=== PATIENT | male | born 1965 | race Two or more races ===

== ENCOUNTER 2017-09-14 00:28 | Inpatient (IN) | payer MEDICARE, OTHER ==
--- NOTE | 2017-09-14 00:34 | HP ---
CIWA Score - CIWA Score Nausea/Vomitin Muscle Tremors: 1-None Visible, but [place] Anxiety: 3 Agitation: 4-Moderately Restless Paroxysmal Sweats: 3 Orientation: 3-Disoriented Date>2 days Tacttile Disturbances: 2-Mild Itch/Numbness/Burn Auditory Disturbances: 0-None Visual Disturbances: 0-None Headache: 1-Very Mild CIWA-Ar Total Score: 20 Admission ROS BHS - HPI Chief Complaint: C/O WITHDRAWAL SX'S. SEEKING DETOX Allergies/Adverse Reactions: Allergies Allergy/AdvReac Type Severity Reaction Status Date / Time No Known Allergies Allergy Verified 02/05/14 11:54 History of Present Illness: 51 Y.O. MALE WITH HX/O ALCOHOLISM HERE FOR DETOX. CLIENT IS KNOWN TO THIS PROGRAM. LAST HERE 2013. SELF REFERRED. DENIES ANY SIGNIFICANT PERIOD OF CLEAN TIME. REPORTS HX/O ETOH RELATED SEIZURE AND BLACKOUTS. DENIES SI/HI AND A/V HALLUCINATIONS. PMHX- ETOH RELATED SEIZURES PSYCH- DEPRESSION Exam Limitations: Intoxication - Ebola screening Have you traveled outside of the country in the last 21 days: No Have you had contact with anyone from an Ebola affected area: No Have you been sick,other than usual withdrawal symptoms: No Do you have a fever: No - Review of Systems Constitutional: Chills, Loss of Appetite, Night Sweats, Changes in sleep EENT: reports: No Symptoms Reported Respiratory: reports: No Symptoms reported Cardiac: reports: No Symptoms Reported GI: reports: Nausea, Poor Appetite : reports: No Symptoms Reported Musculoskeletal: reports: No Symptoms Reported Integumentary: reports: No Symptoms Reported Neuro: reports: Seizure (ETOH RELATED) Endocrine: reports: No Symptoms Reported Hematology: reports: No Symptoms Reported Psychiatric: reports: Depressed Other Systems: Reviewed and Negative Patient History - Patient Medical History Hx Anemia: No Hx Asthma: No Hx Chronic Obstructive Pulmonary Disease (COPD): No Hx Cancer: No Hx Cardiac Disorders: No Hx Congestive Heart Failure: No Hx Hypertension: Yes (HX/O BUT NON COMPLAINT WITH MEDS) Hx Hypercholesterolemia: No Hx Pacemaker: No HX Cerebrovascular Accident: No Hx Seizures: No Hx Dementia: No Hx Diabetes: No Hx Gastrointestinal Disorders: No Hx Liver Disease: No Hx Genitourinary Disorders: No Hx Sexually Transmitted Disorders: No Hx Renal Disease (ESRD): No Hx Thyroid Disease: No Hx Human Immunodeficiency Virus (HIV): No Hx Hepatitis C: No Hx Depression: Yes Hx Suicide Attempt: No Hx Schizophrenia: No Other Medical History: DENIES - Patient Surgical History Past Surgical History: Yes Hx Neurologic Surgery: No Hx Cataract Extraction: No Hx Cardiac Surgery: No Hx Lung Surgery: No Hx Abdominal Surgery: No Hx Appendectomy: No Hx Cholecystectomy: No Hx Genitourinary Surgery: No Hx Orthopedic Surgery: Yes (right leg fx after a fall 10 years ago at [facility]) Anesthesia Reaction: No - PPD History Previous Implant?: Yes Documented Results: Negative w/proof Implanted On Prior [facility] Admission?: Yes Date: 08/20/12 Results: negative PPD to be Administered?: Yes - Smoking Cessation Smoking history: Former smoker Have you smoked in the past 12 months: No Aproximately how many cigarettes per day: 0 Hx Chewing Tobacco Use: No Initiated information on smoking cessation: Yes 'Breaking Loose' booklet given: 09/14/17 - Substance & Tx. History Hx Alcohol Use: Yes Hx Substance Use: Yes Substance Use Type: Alcohol Hx Substance Use Treatment: Yes ([facility]) - Substances Abused LIQUOR Route: Oral Frequency: Daily Amount used: 3 PINTS Age of first use: 14 Date of Last Use: 09/13/17 Family Disease History - Family Disease History Family History: Denies Admission Physical Exam [facility] - Physical General Appearance: Yes: Appropriately Dressed, Mild Distress, Alcohol on Breath , Intoxicated, Tremorous (FELT), Sweating HEENTM: Yes: EOMI, Normocephalic, Normal Voice, TAMANNA, Pharynx Normal Respiratory: Yes: Chest Non-Tender, Lungs Clear, Normal Breath Sounds, No Respiratory Distress, No Accessory Muscle Use Neck: Yes: Within Normal Limits Breast: Yes: Breast Exam Deferred Cardiology: Yes: Regular Rhythm, Regular Rate, S1, S2 Abdominal: Yes: Normal Bowel Sounds, Non Tender, Soft Genitourinary: Yes: Within Normal Limits Back: Yes: Normal Inspection Musculoskeletal: Yes: full range of Motion, Other (UNSTEADY GAIT) Extremities: Yes: Normal Capillary Refill, Normal Range of Motion, Non-Tender, Tremors Neurological: Yes: Alert, Confused, Disoriented (DATE) Integumentary: Yes: Dry, Warm Lymphatic: Yes: Within Normal Limits - Diagnostic (1) Alcohol dependence with uncomplicated withdrawal Current Visit: Yes Status: Acute (2) Alcohol related seizure Current Visit: Yes Status: Suspected (3) Essential hypertension Current Visit: Yes Status: Chronic (4) Alcohol abuse with alcohol-induced mood disorder Current Visit: Yes Status: Suspected Cleared for Admission [facility] - Detox or Rehab [facility] Level of Care: Medically Managed Detox Regimen/Protocol: Librium Claeared for Rehab Admission: No BHS Breath Alcohol Content Breath Alcohol Content: 0.204 Vital Signs - Vital Signs Vital Signs Refused: No Temperature: 97.5 F Temperature Source: Oral Pulse Rate: 87 Respiratory Rate: 18 Blood Pressure: 122/81 BP Location: Left Arm Blood Pressure Position: Sitting - Height Height: 5 ft 6 in - Weight Weight: 72.575 kg Weight Measurement Method: Standing Scale Body Mass Index (BMI): 25.8 - Bowel Function Bowel Movement: No Urine Drug Screen - Test Device Lot Number: [id number] Expiration Date: 06/13/19 - Control Is Test Valid: Yes - Results Drug Screen Negative: Yes
[2017-09-14 00:39] VITALS: BMI 25.8
[2017-09-14] MEDS ORDERED: P-EPHED 60MG/TRIPROLIDI 2.5MG TABLET PO PRN (00:41)
[2017-09-14] MEDS ORDERED: MAG HYDROX/AL HYDROX/SIMETH 30 ML UNIT-DOSE CUP PO PRN (00:41)
[2017-09-14] MEDS ORDERED: LOPERAMIDE HCL 2 MG CAPSULE PO PRN (00:41)
[2017-09-14] MEDS ORDERED: ACETAMINOPHEN 325 MG TABLET (FP) PO PRN (00:41)
[2017-09-14] MEDS ORDERED: MAGNESIUM CITRATE 300 ML BOTTLE PO PRN (00:41)
[2017-09-14] MEDS ORDERED: IBUPROFEN 400 MG TABLET (FP) PO PRN (00:41)
[2017-09-14] MEDS ORDERED: MENTHOL/PHENOL 1 EACH UD MM PRN (00:41)
[2017-09-14] MEDS ORDERED: guaiFENesin/D-METHORPHAN HB 10 ML UNIT-DOSE CUPS PO PRN (00:41)
[2017-09-14] MEDS ORDERED: hydrOXYzine PAMOATE 50 MG CAPSULE (FP) PO PRN (00:41)
[2017-09-14] MEDS ORDERED: chlordiazePOXIDE HCL 25 MG CAPSULE PO PRN (00:41)
[2017-09-14] MEDS ORDERED: MAGNESIUM HYDROX 2400MG/30ML ORAL SUSPENSION 30 ML CUP PO PRN (00:41)
[2017-09-14] MEDS ORDERED: chlordiazePOXIDE HCL 25 MG CAPSULE PO SCH (05:00)
[2017-09-14 07:42] VITALS: BP 118/78; TEMP 98.5
[2017-09-14 08:44] VITALS: PULSE 105
[2017-09-14] MEDS ORDERED: PRENATAL VITAMINS W/ FOLIC ACID TABLET (FP) PO SCH (10:00)
--- NOTE | 2017-09-14 10:19 | EKG ---
Test Reason : Blood Pressure : / mmHG Vent. Rate : 066 BPM Atrial Rate : 066 BPM P-R Int : 144 ms QRS Dur : 066 ms QT Int : 394 ms P-R-T Axes : 054 030 050 degrees QTc Int : 413 ms NORMAL SINUS RHYTHM NORMAL ECG WHEN COMPARED WITH ECG OF 05-FEB-2014 12:22, NO SIGNIFICANT CHANGE WAS FOUND Confirmed by SHARI ARNOLD MD ([id number]) on 09/14/2017 10:19:09 AM Referred By: Confirmed By:SHARI ARNOLD MD
--- NOTE | 2017-09-14 11:09 | PN ---
S CIWA - CIWA Score Nausea/Vomitin Muscle Tremors: 3 Anxiety: 4-Mod. Anxious/Guarded Agitation: 4-Moderately Restless Paroxysmal Sweats: 2 Orientation: 0-Oriented Tacttile Disturbances: 2-Mild Itch/Numbness/Burn Auditory Disturbances: 0-None Visual Disturbances: 0-None Headache: 0-None Present CIWA-Ar Total Score: 18 BHS Progress Note (SOAP) Subjective: Anxious, Tremors, Interrupted Sleep, Nausea. Objective: PATIENT A & O X 3, OBSERVED AMBULATING ON UNIT. NO ACUTE DISTRESS. 09/14/17 11:06 Vital Signs Temperature 98.5 F 09/14/17 07:40 Pulse Rate 105 H 09/14/17 08:30 Respiratory Rate 19 09/14/17 08:00 Blood Pressure 118/78 09/14/17 07:40 O2 Sat by Pulse Oximetry (%) PATIENT REFUSED TO HAVE ADMISSION LABS DRAWN. Assessment: 09/14/17 11:08 WITHDRAWAL SYMPTOMS. Plan: CONTINUE DETOX.
--- NOTE | 2017-09-14 11:13 | DS ---
[facility] Detox Discharge Summary Admission Date: 09/14/17 Discharge Date: 09/14/17 - History Present History: Alcohol Dependence Additional Comments: PATIENT DOES NOT WISH TO STAY TO COMPLETE DETOX REGIMEN. RISKS OF LEAVING DETOX UNIT AGAINST MEDICAL ADVICE AND PRIOR TO COMPLETION OF DETOX REGIMEN EXPLAINED TO PATIENT. PATIENT ADVISED TO GO IMMEDIATELY TO NEAREST ER SHOULD ANY INTOLERABLE DETOX SYMPTOMS DEVELOP AT ANY TIME. PATIENT LEFT DETOX UNIT IN STABLE MEDICAL CONDITION. Pertinent Past History: HTN, History of Alcohol-Related Seizure, Depression. - Physical Exam Results Vital Signs: Vital Signs Temperature 98.5 F 09/14/17 07:40 Pulse Rate 105 H 09/14/17 08:30 Respiratory Rate 19 09/14/17 08:00 Blood Pressure 118/78 09/14/17 07:40 O2 Sat by Pulse Oximetry (%) Pertinent Admission Physical Exam Findings: WITHDRAWAL SYMPTOMS. PATIENT REFUSED TO HAVE ADMISSION LABS DRAWN. - Treatment Hospital Course: Detoxed Safely - Medication Discharge Medications: Ambulatory Orders Metoprolol Tartrate [Lopressor -] 12.5 mg PO BID #1 tab 06/26/12 Aspirin [ASA -] 325 mg PO DAILY #0 tablet 08/23/12 - Diagnosis (1) Alcohol dependence with uncomplicated withdrawal Status: Acute (2) Essential hypertension Status: Chronic (3) Alcohol abuse with alcohol-induced mood disorder Status: Suspected (4) Alcohol related seizure Status: Suspected - AMA Did Patient Leave Against Medical Advice: Yes (PATIENT DID NOT WISH TO STAY TO COMPLETE DETOX REGIMEN.)
[2017-09-14] MEDS ORDERED: THIAMINE HCL 100 MG TABLET (FP) PO SCH (22:00)
[2017-09-14] MEDS ORDERED: MELATONIN 5 MG TABLETS PO PRN (22:00)
[2017-09-15] MEDS ORDERED: chlordiazePOXIDE HCL 25 MG CAPSULE PO SCH (05:00)
[2017-09-16] MEDS ORDERED: chlordiazePOXIDE 5 MG CAPSULE PO SCH (05:00)
[2017-09-17] MEDS ORDERED: chlordiazePOXIDE HCL 10 MG CAPSULE PO SCH (05:00)
== END 2017-09-14 08:50 | disposition left against medical advice (07) | DRG 770 ==
LOC: YASAS 00:28 → Y3N 00:31
PROVIDERS: ADMIT Surgery; ATTEND Surgery
PROC: HZ2ZZZZ Detoxification Services for Substance Abuse Treatment (ICD-10-PCS; principal; 2017-09-14)
DX: F10.230 Alcohol dependence with withdrawal, uncomplicated (principal); F10.24 Alcohol dependence with alcohol-induced mood disorder; I10 Essential (primary) hypertension; G40.509 Epileptic seizures related to external causes, not intractable, without status epilepticus
CPT/HCPCS: 93005; 93010

== ENCOUNTER 2018-08-10 19:37 | Emergency (ER) | payer SELFPAY ==
[2018-08-10 19:55] VITALS: BMI 29.8
--- NOTE | 2018-08-10 21:50 | PDOC ---
Documentation entered by Tiana Victoria SCRIBE, acting as scribe for Bhavna Reyes MD. Bhavna Reyes MD: This documentation has been prepared by the scribe, Tiana Victoria SCRIBE, under my direction and personally reviewed by me in its entirety. I confirm that the documentation accurately reflects all work, treatment, procedures, and medical decision making performed by me. Attending Attestation - Resident Resident Name: Will Pulido - ED Attending Attestation I have performed the following: I have examined & evaluated the patient, The case was reviewed & discussed with the resident, I agree w/resident's findings & plan - HPI HPI: 08/10/18 22:21 Mr. Sherman is a 52 year old male with past medical history significant for HTN, alcohol abuse, depression, HIV and alcohol related seizures presents to the emergency department accompanied with mom with alcohol intoxication. The patient reports usually he has couple of beers, but today he had more than usual. Patient is unable to state why he drank more than usual. Unable to obtain detailed history due to intoxication. - Physicial Exam PE: 08/10/18 22:21 +curled to the side of stretcher under jacket, sleeping, slurred speech, alcohol on breath, sclera injected, Intoxicated clinically, NAD, PERRL, EOMI, nl conjunctiva, neck supple. lungs clear, RRR, abdomen soft nontender. [place] x4. No peripheral edema. normal color for ethnicity, WWP. - Medical Decision Making 08/10/18 21:49 DDx. alcohol intoxication, alcohol withdrawal. drug intoxication Patient demonstrates clinical evidence for alcohol intoxication, goes back to sleep, slurring his speech, [place] x4, no abdominal tenderness or sx.. no e/o w/d syndromes. The patient admits to intentional heavy drinking of alcohol and denies fall or injury. The patient also denies drug use. Some of the history and physical exam is limited due to the state of intoxication. All clothes were removed, all parts of the body were evaluated and there is no evidence of acute trauma. The plan is to observe patient in the ED until clinical sobriety is reached and reassess history and physical examination. check labs, lytes, etoh level, given he has h/o HIV and poor compliance, check his labs and compare banana bag and IVF hydration, reassess. labs at baseline, wnl. pt monitored closely in the ED, sobriety hold. remained comfortable, no acute events, VS remain stable. s/o overnight team, Dr Molina for sobriety check and ultimate dispo/detox if needed. 08/10/18 22:19 08/11/18 01:57
--- NOTE | 2018-08-10 21:59 | PDOC ---
History of Present Illness - General History Source: Patient Exam Limitations: No Limitations - History of Present Illness Initial Comments: 08/10/18 21:49 52 yo male pmh HTN, depression, HIV without AIDs defining illness and alcoholism presents to ED with mother for intoxication. Pt states he drank to many beers to count today which is unusual but unable to give a reason why. Pt admits to drinking 1-2 beers on usual days. Denies SI/HI, recent fall/trauma, localized pain, CP, SOB, abdominal pain F/C/N/V. ROS limited to to intoxication. <Will Pulido - Last Filed: 08/11/18 00:19> <Nataliia Molina - Last Filed: 08/11/18 06:06> <Bhavna Reyes - Last Filed: 08/12/18 12:23> - General Chief Complaint: Alcohol intoxication Stated Complaint: PASSED OUT TOO MUCH ALCOHOL Time Seen by Provider: 08/10/18 21:10 Past History - Past Medical History Anemia: No Asthma: No Cancer: No Cardiac Disorders: No CVA: No COPD: No CHF: No Dementia: No Diabetes: No GI Disorders: No Disorders: No HTN: Yes (HX/O BUT NON COMPLAINT WITH MEDS) Hypercholesterolemia: No Kidney Stones: No Liver Disease: No Seizures: Yes (alcohol r/t) Thyroid Disease: No - Surgical History Abdominal Surgery: No Appendectomy: No Cardiac Surgery: No Cholecystectomy: No Lung Surgery: No Neurologic Surgery: No Orthopedic Surgery: Yes (right leg fx after a fall 10 years ago at [facility]) - Reproductive History Testicular Surgery: No - Suicide/Smoking/Psychosocial Hx Smoking Status: No Smoking History: Never smoked Have you smoked in the past 12 months: No Number of Cigarettes Smoked Daily: 0 Information on smoking cessation initiated: No 'Breaking Loose' booklet given: 09/14/17 Hx Alcohol Use: No Drug/Substance Use Hx: No Substance Use Type: Alcohol Hx Substance Use Treatment: Yes ([facility]) <Will Pulido - Last Filed: 08/11/18 00:19> <Nataliia Molina - Last Filed: 08/11/18 06:06> <Bhavna Reyes - Last Filed: 08/12/18 12:23> - Past Medical History Allergies/Adverse Reactions: Allergies Allergy/AdvReac Type Severity Reaction Status Date / Time No Known Allergies Allergy Verified 08/10/18 19:55 Home Medications: Ambulatory Orders Metoprolol Tartrate [Lopressor -] 12.5 mg PO BID #1 tab 06/26/12 Aspirin [ASA -] 325 mg PO DAILY #0 tablet 08/23/12 *Physical Exam - Vital Signs Last Vital Signs Temp Pulse Resp BP Pulse Ox 98.3 F 93 H 15 127/91 100 08/10/18 19:51 08/10/18 19:51 08/10/18 19:51 08/10/18 19:51 08/10/18 19:51 <Will Pulido - Last Filed: 08/11/18 00:19> - Vital Signs Last Vital Signs Temp Pulse Resp BP Pulse Ox 98.3 F 93 H 15 127/91 100 08/10/18 19:51 08/10/18 19:51 08/10/18 19:51 08/10/18 19:51 08/10/18 19:51 <Nataliia Molina - Last Filed: 08/11/18 06:06> - Vital Signs Last Vital Signs Temp Pulse Resp BP Pulse Ox 98.5 F 91 H 16 131/82 98 08/11/18 06:30 08/11/18 06:30 08/11/18 06:30 08/11/18 06:30 08/11/18 06:30 <Bhavna Reyes - Last Filed: 08/12/18 12:23> ED Treatment Course - LABORATORY CBC & Chemistry Diagram: 08/10/18 23:55 08/10/18 23:55 <Will Pulido - Last Filed: 08/11/18 00:19> - LABORATORY CBC & Chemistry Diagram: 08/10/18 23:55 08/10/18 23:55 - ADDITIONAL ORDERS Additional order review: Laboratory Results 08/10/18 08/10/18 23:55 23:55 PT with INR 10.60 INR 0.90 Sodium 142 Potassium 3.6 Chloride 104 Carbon Dioxide 30 Anion Gap 9 BUN 17 Creatinine 0.7 Creat Clearance w eGFR 117.52 Random Glucose 88 Calcium 8.7 Total Bilirubin 1.0 AST 42 H ALT 34 Alkaline Phosphatase 80 Total Protein 8.0 Albumin 4.0 Alcohol, Quantitative 334.5 H 08/10/18 23:55 RBC 4.55 MCV 92.7 MCHC 33.6 RDW 13.4 MPV 8.2 D Neutrophils % 38.3 L Lymphocytes % 52.6 H D Monocytes % 7.1 Eosinophils % 1.1 Basophils % 0.9 - Medications Given in the ED: ED Medications Discontinued Medications Generic Name Dose Route Start Last Admin Trade Name Freq PRN Reason Stop Dose Admin Sodium Chloride 1,000 ml 08/10/18 22:18 08/10/18 23:40 Normal Saline - IV 08/10/18 22:19 1,000 ml ONCE ONE Administration <Nataliia Molina - Last Filed: 08/11/18 06:06> - LABORATORY CBC & Chemistry Diagram: 08/10/18 23:55 08/10/18 23:55 - ADDITIONAL ORDERS Additional order review: 08/10/18 23:55 RBC 4.55 MCV 92.7 MCHC 33.6 RDW 13.4 MPV 8.2 D Neutrophils % 38.3 L Lymphocytes % 52.6 H D Monocytes % 7.1 Eosinophils % 1.1 Basophils % 0.9 - Medications Given in the ED: ED Medications Discontinued Medications Generic Name Dose Route Start Last Admin Trade Name Freq PRN Reason Stop Dose Admin Chlordiazepoxide HCl 50 mg 08/11/18 05:42 08/11/18 06:41 Librium - PO 08/11/18 05:43 50 mg ONCE ONE Administration Folic Acid 1 mg/ Thiamine HCl 1,000 mls @ 125 mls/hr 08/10/18 22:18 08/10/18 23:40 100 mg/ Multivitamins/Minerals IVPB 08/11/18 06:17 125 mls/hr 10 ml/ Sodium Chloride ONCE ONE Administration Sodium Chloride 1,000 ml 08/10/18 22:18 08/10/18 23:40 Normal Saline - IV 08/10/18 22:19 1,000 ml ONCE ONE Administration <Bhavna Reyes - Last Filed: 08/12/18 12:23> Medical Decision Making - Medical Decision Making 08/11/18 00:13 Pt presents to the ED with mother after consuming to many beers today. Pt is clinically intoxicated without showing s/s of withdrawal. Denies recent injury/ trauma or localized pain. Pt speech is slurred, ambulates with staggered gate. Will draw basic labs, Pt/ptt and alcohol level 1L NS and banana bag Labs pending PT s/o to night team for further care and evaluation of labs <Will Pulido - Last Filed: 08/11/18 00:19> *DC/Admit/Observation/Transfer <Will Pulido - Last Filed: 08/11/18 00:19> - Discharge Dispostion Decision to Admit order: No <Nataliia Molina - Last Filed: 08/11/18 06:06> <Bahvna Reyes - Last Filed: 08/12/18 12:23> Diagnosis at time of Disposition: Alcohol dependence, Alcohol intoxication - Discharge Dispostion Disposition: HOME Condition at time of disposition: Improved - Patient Instructions Printed Discharge Instructions: DI for Alcohol Abuse Additional Instructions: You were seen in the emergency room for alcohol intoxication. I recommend that you go to detox. It is located at [address] [place] [address]. Please come back to the emergency room if you become intoxicated, you fall down , you hit your head, you start vomiting or if any new concerning symptom develops. Thank you
[2018-08-10] MEDS ORDERED: SODIUM CHLORIDE 0.9% 500 ML INFUS.BAG IV ONE (22:18)
[2018-08-10] MEDS ORDERED: FOLIC ACID INJECTION - 1 MG, THIAMINE HCL 100 MG, MULTIVIT INJECTION ADULT 10 ML in SOD... IVPB ONE (22:18)
[2018-08-11 00:05] LABS: BASO % 0.9 % (0-2.0); EOS % 1.1 % (0-4.5); HEMATOCRIT 42.2 % (35.4-49); HEMOGLOBIN 14.2 GM/dL (11.7-16.9); LYMPH % 52.6 % (8-40); MCH 31.1 pg (25.7-33.7); MCHC 33.6 g/dl (32.0-35.9); MEAN CELL VOLUME 92.7 fl (80-96); MEAN PLT VOLUME 8.2 fl (7.5-11.1); MONO % 7.1 % (3.8-10.2); NEUT % 38.3 % (42.8-82.8); PLATELET COUNT 256 K/MM3 (134-434); RBC 4.55 M/mm3 (4.00-5.60); RDW 13.4 % (11.9-15.9); WHITE BLOOD COUNT 5.4 K/mm3 (4.0-10.0)
[2018-08-11 00:29] LABS: INR 0.9 (0.83-1.09); PROTHROMBIN TIME (PATIENT) 10.6 SEC (9.7-13.0)
[2018-08-11 00:51] LABS: ALK PHOS 80 U/L (45-117); ANION GAP 9 MMOL/L (8-16); BLOOD UREA NITROGEN 17 mg/dL (7-18); CALCIUM 8.7 mg/dL (8.5-10.1); CHLORIDE 104 mmol/L (98-107); CO2 30 mmol/L (21-32); CREATININE 0.7 mg/dL (0.55-1.3); GLUCOSE,RANDOM 88 mg/dL (74-106); POTASSIUM 3.6 mmol/L (3.5-5.1); SGOT/AST 42 U/L (15-37); SGPT/ALT 34 U/L (13-61); SODIUM 142 mmol/L (136-145)
--- NOTE | 2018-08-11 00:55 | PDOC ---
*Physical Exam - Vital Signs Last Vital Signs Temp Pulse Resp BP Pulse Ox 98.3 F 93 H 15 127/91 100 08/10/18 19:51 08/10/18 19:51 08/10/18 19:51 08/10/18 19:51 08/10/18 19:51 ED Treatment Course - LABORATORY CBC & Chemistry Diagram: 08/10/18 23:55 08/10/18 23:55 - ADDITIONAL ORDERS Additional order review: Laboratory Results 08/10/18 08/10/18 23:55 23:55 PT with INR 10.60 INR 0.90 Sodium 142 Potassium 3.6 Chloride 104 Carbon Dioxide 30 Anion Gap 9 BUN 17 Creatinine 0.7 Creat Clearance w eGFR 117.52 Random Glucose 88 Calcium 8.7 Total Bilirubin 1.0 AST 42 H ALT 34 Alkaline Phosphatase 80 Total Protein 8.0 Albumin 4.0 Alcohol, Quantitative 334.5 H 08/10/18 23:55 RBC 4.55 MCV 92.7 MCHC 33.6 RDW 13.4 MPV 8.2 D Neutrophils % 38.3 L Lymphocytes % 52.6 H D Monocytes % 7.1 Eosinophils % 1.1 Basophils % 0.9 - Medications Given in the ED: ED Medications Discontinued Medications Generic Name Dose Route Start Last Admin Trade Name Freq PRN Reason Stop Dose Admin Sodium Chloride 1,000 ml 08/10/18 22:18 08/10/18 23:40 Normal Saline - IV 08/10/18 22:19 1,000 ml ONCE ONE Administration Medical Decision Making - Medical Decision Making 08/11/18 00:56 Pt signed out to me by Dr. Pulido 52 yo male pmh HTN, depression, HIV without AIDs defining illness and alcoholism presents to ED with mother for intoxication. Pt states he drank to many beers to count today which is unusual but unable to give a reason why. Pt admits to drinking 1-2 beers on usual days. Denies SI/HI, recent fall/trauma, localized pain, CP, SOB, abdominal pain F/C/N/V. ROS limited to to intoxication. -sobriety -Librium -Detox pt evaluated for sobriety around 2am. pt seeing double. pt ambulating, not seeing double, no slurred speech, agrees to be dc home. not interested in detox at this time. given librium. given instructions to [facility] if pt desires to go to detox. pt agrees to plan to be dc home. understands return precautions *DC/Admit/Observation/Transfer Diagnosis at time of Disposition: Alcohol dependence with uncomplicated withdrawal - Discharge Dispostion Disposition: HOME Condition at time of disposition: Improved - Referrals - Patient Instructions Printed Discharge Instructions: DI for Alcohol Abuse Additional Instructions: You were seen in the emergency room for alcohol intoxication. I recommend that you go to detox. It is located at [address] [place] [address]. Please come back to the emergency room if you become intoxicated, you fall down , you hit your head, you start vomiting or if any new concerning symptom develops. Thank you - Post Discharge Activity
[2018-08-11] MEDS ORDERED: chlordiazePOXIDE HCL 25 MG CAPSULE PO ONE (05:42)
[2018-08-11] MEDS ORDERED: chlordiazePOXIDE HCL 25 MG CAPSULE ONE (06:33)
[2018-08-11 07:10] VITALS: BP 131/82; PULSE 91; TEMP 98.5
== END 2018-08-11 06:55 | disposition home or self-care (01) ==
LOC: JER 19:37
PROC: 3E033GC Introduction of Other Therapeutic Substance into Peripheral Vein, Percutaneous Approach (ICD-10-PCS; principal; 2018-08-10)
DX: F10.230 Alcohol dependence with withdrawal, uncomplicated (principal); I10 Essential (primary) hypertension; F32.9 Major depressive disorder, single episode, unspecified; Z21 Asymptomatic human immunodeficiency virus [HIV] infection status; Z91.14 Patient's other noncompliance with medication regimen
CPT/HCPCS: 36415; 80053; 80307; 85025; 85610; 99282-25; J7030

== ENCOUNTER 2018-08-12 15:40 | Emergency (ER) | payer SELFPAY ==
[2018-08-12 15:48] VITALS: BP 127/90; PULSE 104; TEMP 97.8; BMI 27.2
== END 2018-08-12 17:12 | disposition left against medical advice (07) ==
LOC: JER 15:40
DX: Z53.21 Procedure and treatment not carried out due to patient leaving prior to being seen by health care provider (principal)
CPT/HCPCS: 99281-25

== ENCOUNTER → 2020-12-20 | Emergency (ER) | payer SELFPAY ==
[2020-12-20 17:50] VITALS: TEMP 98.2; BMI 24.2
[2020-12-20 18:35] VITALS: BP 97/56; PULSE 82
== END | disposition left against medical advice (07) ==
LOC: JER 17:23
DX: F10.220 Alcohol dependence with intoxication, uncomplicated (principal)
CPT/HCPCS: 82962; 99283-25